=== PATIENT | male | born 1950 | race Caucasian/White ===

== ENCOUNTER 2016-06-26 04:51 | Emergency (ER) | payer OTHER ==
[2016-06-26] MEDS ORDERED: KETOROLAC 30 MG/ML VIAL ONE (09:01)
[2016-06-26] MEDS ORDERED: SODIUM CHLORIDE 0.9% 1,000 ML ONE (09:01)
== END 2016-06-26 10:21 | disposition home or self-care (01) ==
LOC: ER 04:51
DX: S39.012A Strain of muscle, fascia and tendon of lower back, initial encounter (principal); K59.00 Constipation, unspecified; M54.5 Low back pain
CPT/HCPCS: 36415; 74176; 80053; 81003; 83690; 85025; 96361; 96374; 99284; J1885